=== PATIENT | female | born 1955 | race Caucasian/White ===

== ENCOUNTER → 2016-10-28 | Outpatient (CLI) | payer BC ==
[~2016-10-28] MED LIST: ACP20 PO; ASPI325T45 PO; BACL1TAB PO; DOXY100C41; FLNIN NAE; LEVO150T PO; LEVO150T9 PO; LEVO25TA PO; LEVO25TA5 PO; OXYC-57 PO; RABE20TA5 PO; SUMA50TA15 PO
--- NOTE | 2016-10-28 17:03 | MAMMOGRAPHY REPORT ---
BILATERAL DIGITAL SCREENING MAMMOGRAM WITH CAD: 10/28/2016 CLINICAL HISTORY: Routine screening examination. TECHNIQUE: Bilateral CC, MLO and repeat left MLO views were obtained. Current study was also evalua tabitha with a Computer Aided Detection (CAD) system. COMPARISON: Comparison is made to exams dated: 10/29/2015 mammogram - [facility], mammogram, 05/14/2010 mammogram, and 05/09/2009 mammogram - [facility]. BREAST COMPOSITION: There are scattered areas of fibroglandular density in both breasts. FINDINGS: There are mild vascular calcifications in both breasts. No suspicious mass, architectur al distortion or cluster of microcalcifications is seen. IMPRESSION: ACR BI-RADS CATEGORY 2: BENIGN There is no mammographic evidence of malignancy. A 1 year screening mammogram is recommended. The p atient will receive written notification of the results. Approximately 10% of breast cancers are not detected with mammography. A negative mammographic repor t should not delay biopsy if a clinically suggestive mass is present. Nidia Francis M.D. ay/:10/28/2016 16:35:01 Manufacturing Maintenance Technician: Daniella DARBY(Siomn)(Viviana), [facility] letter sent: Normal 1/2 BI-RADS Code: ACR BI-RADS Category 2: Benign
== END | disposition home or self-care (01) ==
LOC: C.MAMM 13:05
PROVIDERS: ATTEND Family Medicine
DX: Z12.31 Encounter for screening mammogram for malignant neoplasm of breast (principal)

== ENCOUNTER → 2016-11-16 | Outpatient (CLI) | payer BC | END | disposition home or self-care (01) | LOC: C.RDSM 08:00 | PROVIDERS: ATTEND Physical Medicine & Rehabilitation | DX: M53.3 Sacrococcygeal disorders, not elsewhere classified (principal); Z91.81 History of falling ==

== ENCOUNTER → 2016-11-17 | Outpatient (CLI) | payer BC | END | disposition home or self-care (01) | LOC: C.RDSM 13:15 | PROVIDERS: ATTEND Orthopaedic Surgery Sports Medicine | DX: M25.562 Pain in left knee (principal) ==

== ENCOUNTER → 2016-12-09 | Day surgery (SDC) | payer BC ==
[2016-11-18 12:51] VITALS: Ht 158.8 cm; Wt 124.1 kg
[~2016-12-09] VITALS: Ht 158.8 cm; Wt 124.1 kg
[~2016-12-09] MED LIST changes: -ACP20 PO; -ASPI325T45 PO; +BUPIVACAINE 0.25% 2.5MG/ML PF 10 ML VIAL INFIL ONE; -DOXY100C41; +IOPAMIDOL INJ 61% 15 ML VIAL ONE; -LEVO150T PO; -LEVO25TA PO; +LIDOCAINE HCL 1% MPF 5 ML VIAL ONE; -OXYC-57 PO
--- NOTE | 2016-12-09 13:49 | History & Physical Bridge - SC ---
H&P Re-Evaluation Bridge Note: I have examined the patient, reviewed the History & Physical and in the interval since the performance of the History & Physical I have noted the following changes of clinical significance: No changes noted
[2016-12-09 14:09] VITALS: TEMP 37.1
--- NOTE | 2016-12-09 14:16 | Discharge Instructions ---
Discharge Instructions Date of Service Dec 09, 2016. Visit Reason for Visit: Sacrococcygeal Disorder Discharge Discharge Diagnosis / Problem: Low back pain Discharge Goals Goal(s): Decrease discomfort, Improve function Activity Recommendations Activity Limitations: resume your previous activity Anesthesia . Post Anesthesia Instructions: If you have had General Anesthesia or IV Sedation: * Do not drive today. * Resume driving when surgeon permits. * Do not make important decisions or sign legal documents today. * Call surgeon for: 1. Temperature elevations greater than 101 degrees F. 2. Uncontrollable pain. 3. Excessive bleeding. 4. Persistent nausea and vomiting. 5. Medication intolerance (nausea, vomiting or rash). * For nausea and vomiting use only clear liquids such as: tea, soda, bouillon until nausea subsides, then gradually increase diet as tolerated. * If you have any concerns or questions, call your surgeon's office. If physician is unavailable and it is an emergency, call 911 or go to the nearest emergency room. . Diet Recommendations Recommended Home Diet: resume previous diet Procedures Procedures Performed: Left Sacroilliac Joint Injection Pending Studies Studies pending at discharge: no Medical Emergencies . Who to Call and When: Medical Emergencies: If at any time you feel your situation is an emergency, please call 911 immediately. . Non-Emergent Contact Non-Emergency issues call your: Specialist . . "Provider Documentation" section prepared by Marcio Gutierrez.
[2016-12-09 14:20] VITALS: BP 156/83; PULSE 73; O2SAT 96
--- NOTE | 2016-12-09 14:42 | OPERATIVE REPORT ---
DATE OF OPERATION: 12/09/2016 PREOPERATIVE DIAGNOSES: Left sacroiliitis, history of trauma, underlying scoliosis. POSTOPERATIVE DIAGNOSES: Same. PROCEDURE: Left sacroiliac joint injection under fluoroscopic guidance. INDICATIONS: The patient is a 61-year-old white female who fell on 04/28/2016. She has had persistent sacroiliac pain since that time. She has not responded to conservative measures. She presents today for an injection to provide her with relief. PHYSICAL EXAMINATION: Pleasant female, seated comfortably. She is point tender to palpation of her left SI joint, worse with extension. She had a positive Zakiya maneuver on the left, negative sacral distraction maneuver, positive sacral compression maneuver. Normal motor and sensory exam. CONSENT: Verbal and written consent was obtained from the patient. Risks and benefits were reviewed. Risks include but are not limited to abscess and allergic reaction. The patient wishes to proceed. PROCEDURE IN DETAIL: The patient was taken back to the special procedures room of the [facility] where she was maintained in a prone position. Backside was cleansed with Betadine x3 and a dry sterile dressing was applied. Fluoroscope was used to identify the left SI joint. Given her allergies to both lidocaine and IVP dye, these were not used. A 25 gauge 3.5-inch needle was then placed into the joint under fluoroscopic guidance. There was a give as it entered the joint. This was confirmed under fluoroscopic guidance with the tip being within the joint. She then underwent injection after negative aspiration of 40 mg of Depo-Medrol. Procedure reproduced a familiar pressure sensation into the sacroiliac region. DISPOSITION: 1. The patient is taken out into the discharge recovery area where she will be discharged home once discharge criteria have been met. 2. Follow up in the [facility] office in 2-4 weeks. I attest to the content of the Intraoperative Record and any orders documented therein. Any exceptio ns are noted below.
== END | disposition home or self-care (01) ==
LOC: X.SURG 12:45
PROVIDERS: ATTEND Physical Medicine & Rehabilitation
DX: M46.1 Sacroiliitis, not elsewhere classified (principal); M41.9 Scoliosis, unspecified; Z79.82 Long term (current) use of aspirin; Z79.899 Other long term (current) drug therapy

== ENCOUNTER → 2017-06-18 | Outpatient (CLI) | payer BC ==
[~2017-06-18] MED LIST changes: -BUPIVACAINE 0.25% 2.5MG/ML PF 10 ML VIAL INFIL ONE; -IOPAMIDOL INJ 61% 15 ML VIAL ONE; -LIDOCAINE HCL 1% MPF 5 ML VIAL ONE
--- NOTE | 2017-06-18 13:30 | DIAGNOSTIC IMAGING REPORT ---
RENAL ULTRASOUND CLINICAL HISTORY: Left sided back pain. COMPARISON STUDY: CT of the abdomen and pelvis March 05, 2014. TECHNIQUE: Sonography of the kidneys and the urinary bladder was performed. FINDINGS: The right kidney measures 12 x 5.4 x 7.8 cm and the left measures 13.1 x 5.9 x 4.8 cm. There is no hydronephrosis. No calculi or masses are identified by sonography. Incidental note is made of fatty infiltration of the liver. Neither ureteral jet was identified. Bladder is otherwise unremarkable. IMPRESSION: 1. No hydronephrosis. Normal sonographic appearance of the kidneys. 2. Fatty infiltration of the liver. Electronically signed by: Federico Llanes M.D. 06/18/2017 1:29 PM Dictated Date/Time: 06/18/2017 1:20 PM
== END | disposition home or self-care (01) ==
LOC: C.ULTR 12:45
PROVIDERS: ATTEND Family Medicine
DX: M54.9 Dorsalgia, unspecified (principal); K76.0 Fatty (change of) liver, not elsewhere classified

== ENCOUNTER → 2017-09-01 | Outpatient (CLI) | payer BC | END | disposition home or self-care (01) | LOC: C.PATHSPEC 17:31 | PROVIDERS: ATTEND Urology | DX: R31.29 Other microscopic hematuria (principal) ==

== ENCOUNTER → 2017-09-16 | Outpatient (CLI) | payer BC | END | disposition home or self-care (01) | LOC: C.RDSM 07:00 | PROVIDERS: ATTEND Orthopaedic Surgery Sports Medicine | DX: M25.512 Pain in left shoulder (principal) ==

== ENCOUNTER → 2017-10-29 | Outpatient (CLI) | payer BC ==
--- NOTE | 2017-10-29 15:44 | MAMMOGRAPHY REPORT ---
BILATERAL DIGITAL SCREENING MAMMOGRAM TOMOSYNTHESIS WITH CAD: 10/29/2017 CLINICAL HISTORY: Routine screening. Patient has no complaints. TECHNIQUE: Breast tomosynthesis in addition to standard 2D mammography was performed. Current study was also evaluated with a Computer Aided Detection (CAD) system. COMPARISON: Comparison is made to exams dated: 10/28/2016 mammogram, 10/29/2015 mammogram - [facility], 10/07/2011 mammogram, 05/14/2010 mammogram, 05/09/2009 mammogram, and 05/08/2008 mammogra m - [facility]. BREAST COMPOSITION: There are scattered areas of fibroglandular density in both breasts. FINDINGS: No suspicious masses, calcifications, or areas of architectural distortion are noted in ei ther breast. There has been no significant interval change compared to prior exams. IMPRESSION: ACR BI-RADS CATEGORY 1: NEGATIVE There is no mammographic evidence of malignancy. A 1 year screening mammogram is recommended. The pa tient will receive written notification of the results. Approximately 10% of breast cancers are not detected with mammography. A negative mammographic report should not delay biopsy if a clinically suggestive mass is present. Yesica Neely M.D. ah/:10/29/2017 13:44:26 Contracts Advisor: Marisol DARBY(Simon)(M), [facility] letter sent: Normal 1/2 BI-RADS Code: ACR BI-RADS Category 1: Negative
== END | disposition home or self-care (01) ==
LOC: C.MAMM 13:05
PROVIDERS: ATTEND Family Medicine
DX: Z12.31 Encounter for screening mammogram for malignant neoplasm of breast (principal)

== ENCOUNTER → 2017-11-09 | Outpatient (CLI) | payer BC | END | disposition home or self-care (01) | LOC: C.RDSM 18:56 | PROVIDERS: ATTEND Orthopaedic Surgery Sports Medicine | DX: M25.569 Pain in unspecified knee (principal) ==

== ENCOUNTER → 2017-12-02 | Outpatient (CLI) | payer BC ==
--- NOTE | 2017-12-02 11:04 | DIAGNOSTIC IMAGING REPORT ---
ABDOMEN COMPLETE (US) CLINICAL HISTORY: Left-sided abdominal pain. COMPARISON STUDY: CT of the abdomen and pelvis March 05, 2014 and renal ultrasound June 18, 2017. FINDINGS: Increased hepatic echogenicity represents significant fatty infiltration of the liver. No hepatic lesions are identified. There is no biliary ductal dilatation status post cholecystectomy. The common bile duct measures 6 mm in caliber. The pancreatic body is normal. The head and tail are obscured. The size of the spleen is at the upper limits of normal. The right kidney measures 11 cm and the left measures 11.8 cm. There is no hydronephrosis. Study is mildly compromised due to suboptimal penetration. Caliber of the abdominal aorta was normal. IMPRESSION: 1. Fatty infiltration of the liver. 2. No biliary ductal dilatation status post cholecystectomy. 3. No hydronephrosis. Electronically signed by: Federico Llanes M.D. 12/02/2017 11:03 AM Dictated Date/Time: 12/02/2017 10:57 AM
== END | disposition home or self-care (01) ==
LOC: C.ULTRBC 10:12
PROVIDERS: ATTEND Family Medicine Hospice and Palliative Medicine
DX: R10.9 Unspecified abdominal pain (principal); K76.0 Fatty (change of) liver, not elsewhere classified